=== PATIENT | male | born 1985 | race Caucasian/White ===

== ENCOUNTER 2017-11-15 03:48 | Inpatient (IN) | payer MEDICAID, OTHER ==
[~2017-11-15] VITALS: Ht 177.8 cm; Wt 67.6 kg
[2017-11-15] VITALS (7 sets, daily range): BP systolic 96–158
[2017-11-15] MEDS ORDERED: NACL 0.9% 1,000 ML IV ONE ×2 (04:27→05:49)
[2017-11-15 04:53] LABS: BASOPHILS # (AUTO) 0.2 K/uL (0.0-0.2); BASOPHILS % (AUTO) 1.6 % (0.0-2.0); EOSINOPHILS # (AUTO) 0.5 K/uL (0.0-0.4); EOSINOPHILS % (AUTO) 5.5 % (0.0-4.0); HEMATOCRIT 39.1 % (36-54); HEMOGLOBIN 12.7 g/dL (14.0-18.0); LYMPHOCYTES # (AUTO) 1.7 K/uL (1.0-5.5); LYMPHOCYTES % (AUTO) 17.6 % (20.5-51.5); MEAN CORPUSCULAR HEMOGLOBIN 26 pg (27-31); MEAN CORPUSCULAR HGB CONC 33 % (32-36); MEAN CORPUSCULAR VOLUME 80 fL (79.0-98.0); MONOCYTES # (AUTO) 0.6 K/uL (0.0-1.0); MONOCYTES % (AUTO) 6.1 % (1.7-9.3); NEUTROPHILS # (AUTO) 6.7 K/uL (1.8-7.7); NEUTROPHILS % (AUTO) 69.2 % (40.0-70.0); PLATELET COUNT (AUTO) 463 K/uL (130-430); RED CELL DISTRIBUTION WIDTH 14.7 % (9.0-15.0); WHITE BLOOD COUNT (AUTO) 9.7 K/uL (4.8-10.8)
[2017-11-15 04:59] LABS: CALCIUM 8.7 mg/dL (8.4-11.0); CREATININE 0.74 mg/dL (0.55-1.30); POTASSIUM 3.9 mmol/L (3.5-5.1)
[2017-11-15 05:04] LABS: ALBUMIN 2.5 g/dL (3.4-4.8); TOTAL BILIRUBIN 0.3 mg/dL (0.0-1.0)
[2017-11-15 05:18] LABS: INR 1.1 (0.80-1.20); PROTHROMBIN TIME 11.2 SECS (9.5-12.5)
[2017-11-15] MEDS ORDERED: diclofenac 1% gel TP (05:18)
[2017-11-15] MEDS ORDERED: AMAN100C16 GT (05:18)
[2017-11-15] MEDS ORDERED: LOVI40 SQ (05:18)
[2017-11-15] MEDS ORDERED: METO5SOL GT (05:18)
[2017-11-15] MEDS ORDERED: LUBRIFRESH PM EACH EYE (05:18)
[2017-11-15] MEDS ORDERED: CHLO473M5 MM (05:18)
[2017-11-15] MEDS ORDERED: PANT40TA4 GT (05:18)
[2017-11-15] MEDS ORDERED: BACL10TA GT (05:18)
[2017-11-15] MEDS ORDERED: POTASSIUM CHLORIDE 20 MEQ in D5/0.45 NS 1,000 ML IV SCH (05:50)
[2017-11-15 08:28] LABS: BILIRUBIN,URINE NEGATIVE (NEGATIVE); BLOOD, URINE 3+ (NEGATIVE); CLARITY/URINE SL HAZY (CLEAR); COLOR,URINE AMBER (YELLOW); GLUCOSE,URINE NEGATIVE (NEGATIVE); KETONES,URINE NEGATIVE (NEGATIVE); LEUKOCYTE ESTERASE ,URINE NEGATIVE (NEGATIVE); NITRITE, URINE NEGATIVE (NEGATIVE); PH,URINE 6.5 (5.0-8.0); PROTEIN URINE TRACE (NEGATIVE); UROBILINOGEN,URINE 0.2 (0.2-1.0)
[2017-11-15 08:30] LABS: BACTERIA,URINE FEW /HPF (None Seen); WBC,URINE 0-3 /HPF (0-3)
[2017-11-15] MEDS: POTASSIUM CHLORIDE 20 MEQ in D5/0.45 NS 1,000 ML IV SCH (08:31)
[2017-11-15] MEDS ORDERED: LevALBUTEROL HCL 1.25 MG/0.5 ML *CONC.* VIAL.NEB (XOPENEX CONC.) INH SCH (10:00)
[2017-11-15] MEDS: LevALBUTEROL HCL 1.25 MG/0.5 ML *CONC.* VIAL.NEB (XOPENEX CONC.) INH SCH ×3 (10:00→19:17)
[2017-11-15] MEDS ORDERED: MILK OF MAGNESIA 30 ML UDC PO PRN ×2 (10:00→10:30)
[2017-11-15] MEDS ORDERED: LevALBUTEROL HCL 1.25 MG/0.5 ML *CONC.* VIAL.NEB (XOPENEX CONC.) INH PRN (10:00)
[2017-11-15] MEDS ORDERED: ENOXAPARIN SODIUM 40 MG/0.4 ML SYRINGE SQ ONE (10:30)
[2017-11-15] MEDS ORDERED: METOCLOPRAMIDE HCL 10 MG/10 ML UDC GT PRN (10:30)
[2017-11-15] MEDS ORDERED: AMANTADINE HCL 100 MG CAP GT ONE (10:30)
[2017-11-15] MEDS: PANTOPRAZOLE SODIUM 40 MG TAB GT SCH (11:24)
[2017-11-15] MEDS ORDERED: cefTRIAXone 1 GM in D5W 50 ML IV ONE (12:00)
[2017-11-15] MEDS: IPRATROPIUM BROM 0.5 MG/2.5 ML VIAL.NEB (ATROVENT) INH SCH ×2 (12:45→19:17)
[2017-11-15] MEDS: AMANTADINE HCL 100 MG CAP GT SCH (21:35)
[2017-11-15] MEDS: BACLOFEN 10 MG TABLET GT SCH (21:35)
[2017-11-15] MEDS: CHLORHEXIDINE GLUCONATE 15 ML/DOSE, 480 ML MM SCH (21:44)
[2017-11-16 00:30] VITALS: BP_SYST 106
[2017-11-16] MEDS: POTASSIUM CHLORIDE 20 MEQ in D5/0.45 NS 1,000 ML IV SCH ×2 (00:50→23:43)
[2017-11-16] MEDS: LevALBUTEROL HCL 1.25 MG/0.5 ML *CONC.* VIAL.NEB (XOPENEX CONC.) INH SCH ×4 (01:35→19:56)
[2017-11-16] MEDS: IPRATROPIUM BROM 0.5 MG/2.5 ML VIAL.NEB (ATROVENT) INH SCH ×4 (01:35→19:56)
[2017-11-16 08:00] VITALS: BP_SYST 93
[2017-11-16] MEDS ORDERED: cefTRIAXone 1 GM in D5W 50 ML IV SCH (09:00)
[2017-11-16] MEDS: AMANTADINE HCL 100 MG CAP GT SCH ×2 (09:30→20:39)
[2017-11-16] MEDS: PANTOPRAZOLE SODIUM 40 MG TAB GT SCH (09:30)
[2017-11-16] MEDS: ENOXAPARIN SODIUM 40 MG/0.4 ML SYRINGE SQ SCH (09:30)
[2017-11-16] MEDS: CHLORHEXIDINE GLUCONATE 15 ML/DOSE, 480 ML MM SCH ×2 (09:32→20:40)
[2017-11-16 12:24] VITALS: BP_SYST 127
[2017-11-16] MEDS: PIPERACILLIN/TAZO 3.375/DEX-IS 50 ML IV SCH ×2 (18:04→23:42)
[2017-11-16 18:31] VITALS: BP_SYST 105
[2017-11-16 20:00] VITALS: BP_SYST 104
[2017-11-16] MEDS: BACLOFEN 10 MG TABLET GT SCH (20:39)
[2017-11-17] VITALS (25 sets, daily range): BP systolic 100–184
[2017-11-17] MEDS: IPRATROPIUM BROM 0.5 MG/2.5 ML VIAL.NEB (ATROVENT) INH SCH ×4 (01:39→19:45)
[2017-11-17] MEDS: LevALBUTEROL HCL 1.25 MG/0.5 ML *CONC.* VIAL.NEB (XOPENEX CONC.) INH SCH ×4 (01:39→19:45)
[2017-11-17] MEDS: PIPERACILLIN/TAZO 3.375/DEX-IS 50 ML IV SCH ×3 (05:09→18:13)
[2017-11-17 06:54] LABS: BASOPHILS # (AUTO) 0.1 K/uL (0.0-0.2); BASOPHILS % (AUTO) 1.2 % (0.0-2.0); EOSINOPHILS # (AUTO) 0.6 K/uL (0.0-0.4); EOSINOPHILS % (AUTO) 6.5 % (0.0-4.0); HEMATOCRIT 38.3 % (36-54); HEMOGLOBIN 12.4 g/dL (14.0-18.0); LYMPHOCYTES # (AUTO) 1.4 K/uL (1.0-5.5); LYMPHOCYTES % (AUTO) 15.6 % (20.5-51.5); MEAN CORPUSCULAR HEMOGLOBIN 26 pg (27-31); MEAN CORPUSCULAR HGB CONC 33 % (32-36); MEAN CORPUSCULAR VOLUME 79 fL (79.0-98.0); MONOCYTES # (AUTO) 0.6 K/uL (0.0-1.0); NEUTROPHILS # (AUTO) 6.4 K/uL (1.8-7.7); NEUTROPHILS % (AUTO) 69.7 % (40.0-70.0); PLATELET COUNT (AUTO) 480 K/uL (130-430); RED BLOOD CELL COUNT(AUTO) 4.82 MIL/uL (4.2-6.2); RED CELL DISTRIBUTION WIDTH 14.4 % (9.0-15.0); WHITE BLOOD COUNT (AUTO) 9.1 K/uL (4.8-10.8)
[2017-11-17 07:40] LABS: CALCIUM 9.5 mg/dL (8.4-11.0); CREATININE 0.82 mg/dL (0.55-1.30); POTASSIUM 4.1 mmol/L (3.5-5.1)
[2017-11-17] MEDS: ENOXAPARIN SODIUM 40 MG/0.4 ML SYRINGE SQ SCH (09:41)
[2017-11-17] MEDS: AMANTADINE HCL 100 MG CAP GT SCH ×2 (09:41→20:29)
[2017-11-17] MEDS: CHLORHEXIDINE GLUCONATE 15 ML/DOSE, 480 ML MM SCH ×2 (09:41→20:30)
[2017-11-17] MEDS: PANTOPRAZOLE SODIUM 40 MG TAB GT SCH (09:57)
[2017-11-17] MEDS: LORazepam 2 MG/ML VIAL IVP PRN (11:42)
[2017-11-17] MEDS: BACLOFEN 10 MG TABLET GT SCH (20:29)
[2017-11-18] VITALS (33 sets, daily range): BP systolic 98–137
[2017-11-18] MEDS: IPRATROPIUM BROM 0.5 MG/2.5 ML VIAL.NEB (ATROVENT) INH SCH ×4 (00:10→20:04)
[2017-11-18] MEDS: LevALBUTEROL HCL 1.25 MG/0.5 ML *CONC.* VIAL.NEB (XOPENEX CONC.) INH SCH ×4 (00:10→20:04)
[2017-11-18] MEDS: PIPERACILLIN/TAZO 3.375/DEX-IS 50 ML IV SCH ×4 (00:20→18:04)
[2017-11-18] MEDS: LORazepam 2 MG/ML VIAL IVP PRN ×5 (01:39→21:12)
[2017-11-18] MEDS: POTASSIUM CHLORIDE 20 MEQ in D5/0.45 NS 1,000 ML IV SCH (04:15)
[2017-11-18] MEDS: AMANTADINE HCL 100 MG CAP GT SCH ×2 (08:03→21:11)
[2017-11-18] MEDS: ENOXAPARIN SODIUM 40 MG/0.4 ML SYRINGE SQ SCH (08:04)
[2017-11-18] MEDS: CHLORHEXIDINE GLUCONATE 15 ML/DOSE, 480 ML MM SCH ×2 (08:05→21:12)
[2017-11-18] MEDS: PANTOPRAZOLE SODIUM 40 MG TAB GT SCH (09:46)
[2017-11-18] MEDS ORDERED: MORPHINE 4 MG/ML INJ. SYRINGE IVP PRN (19:30)
[2017-11-18] MEDS: BACLOFEN 10 MG TABLET GT SCH (21:11)
[2017-11-19] VITALS (31 sets, daily range): BP systolic 99–144
[2017-11-19] MEDS: PIPERACILLIN/TAZO 3.375/DEX-IS 50 ML IV SCH ×4 (00:42→17:38)
[2017-11-19] MEDS: LevALBUTEROL HCL 1.25 MG/0.5 ML *CONC.* VIAL.NEB (XOPENEX CONC.) INH SCH ×4 (01:29→19:55)
[2017-11-19] MEDS: IPRATROPIUM BROM 0.5 MG/2.5 ML VIAL.NEB (ATROVENT) INH SCH ×4 (01:29→20:18)
[2017-11-19] MEDS: POTASSIUM CHLORIDE 20 MEQ in D5/0.45 NS 1,000 ML IV SCH (06:28)
[2017-11-19] MEDS: AMANTADINE HCL 100 MG CAP GT SCH ×2 (08:25→21:42)
[2017-11-19] MEDS: CHLORHEXIDINE GLUCONATE 15 ML/DOSE, 480 ML MM SCH ×2 (08:25→21:42)
[2017-11-19] MEDS: ENOXAPARIN SODIUM 40 MG/0.4 ML SYRINGE SQ SCH (08:25)
[2017-11-19] MEDS: LORazepam 2 MG/ML VIAL IVP PRN ×2 (08:28→21:52)
[2017-11-19] MEDS: PANTOPRAZOLE SODIUM 40 MG TAB GT SCH (09:11)
[2017-11-19] MEDS: BACLOFEN 10 MG TABLET GT SCH (21:42)
[2017-11-20] VITALS (33 sets, daily range): BP systolic 92–128
[2017-11-20] MEDS: PIPERACILLIN/TAZO 3.375/DEX-IS 50 ML IV SCH ×5 (00:23→23:39)
[2017-11-20] MEDS: LevALBUTEROL HCL 1.25 MG/0.5 ML *CONC.* VIAL.NEB (XOPENEX CONC.) INH SCH ×4 (01:06→19:51)
[2017-11-20] MEDS: IPRATROPIUM BROM 0.5 MG/2.5 ML VIAL.NEB (ATROVENT) INH SCH ×4 (01:07→19:52)
[2017-11-20] MEDS: POTASSIUM CHLORIDE 20 MEQ in D5/0.45 NS 1,000 ML IV SCH (05:18)
[2017-11-20] MEDS: ENOXAPARIN SODIUM 40 MG/0.4 ML SYRINGE SQ SCH (09:26)
[2017-11-20] MEDS: AMANTADINE HCL 100 MG CAP GT SCH ×2 (09:26→20:43)
[2017-11-20] MEDS: CHLORHEXIDINE GLUCONATE 15 ML/DOSE, 480 ML MM SCH ×2 (13:36→20:42)
[2017-11-20] MEDS: PANTOPRAZOLE SODIUM 40 MG TAB GT SCH (13:38)
[2017-11-20] MEDS: LORazepam 2 MG/ML VIAL IVP PRN (15:20)
[2017-11-20] MEDS: BACLOFEN 10 MG TABLET GT SCH (20:43)
[2017-11-21] VITALS (30 sets, daily range): BP systolic 89–150
[2017-11-21] MEDS: LevALBUTEROL HCL 1.25 MG/0.5 ML *CONC.* VIAL.NEB (XOPENEX CONC.) INH SCH ×4 (00:55→18:39)
[2017-11-21] MEDS: IPRATROPIUM BROM 0.5 MG/2.5 ML VIAL.NEB (ATROVENT) INH SCH ×4 (00:56→18:39)
[2017-11-21] MEDS: LORazepam 2 MG/ML VIAL IVP PRN (04:06)
[2017-11-21] MEDS: PIPERACILLIN/TAZO 3.375/DEX-IS 50 ML IV SCH ×3 (05:48→16:59)
[2017-11-21] MEDS: POTASSIUM CHLORIDE 20 MEQ in D5/0.45 NS 1,000 ML IV SCH (05:50)
[2017-11-21] MEDS: PANTOPRAZOLE SODIUM 40 MG TAB GT SCH (09:19)
[2017-11-21] MEDS: AMANTADINE HCL 100 MG CAP GT SCH ×2 (09:19→20:28)
[2017-11-21] MEDS: ENOXAPARIN SODIUM 40 MG/0.4 ML SYRINGE SQ SCH (09:20)
[2017-11-21] MEDS: CHLORHEXIDINE GLUCONATE 15 ML/DOSE, 480 ML MM SCH ×2 (09:21→21:02)
[2017-11-21] MEDS ORDERED: LEVOFLOXACIN 500 MG/D5W 100 ML IV SCH (18:00)
[2017-11-21] MEDS ORDERED: LEVO500T20 IVPB (18:12)
[2017-11-21] MEDS: BACLOFEN 10 MG TABLET GT SCH (20:28)
== END 2017-11-21 21:40 | DRG 720 ==
LOC: SED 03:48 → STU 05:50 → SIC 11-17 08:10
PROVIDERS: ADMIT Family Medicine; ATTEND Family Medicine
PROC: 5A1955Z Respiratory Ventilation, Greater than 96 Consecutive Hours (ICD-10-PCS; principal; 2017-11-16)
DX: A41.9 Sepsis, unspecified organism (principal); J96.21 Acute and chronic respiratory failure with hypoxia; Z99.11 Dependence on respirator [ventilator] status; J15.1 Pneumonia due to Pseudomonas; G93.1 Anoxic brain damage, not elsewhere classified; J14 Pneumonia due to Hemophilus influenzae; Z93.0 Tracheostomy status; G25.3 Myoclonus; R47.01 Aphasia; Y95 Nosocomial condition; T50.905A Adverse effect of unspecified drugs, medicaments and biological substances, initial encounter; Y92.89 Other specified places as the place of occurrence of the external cause; Z74.01 Bed confinement status; Z93.1 Gastrostomy status; Z79.899 Other long term (current) drug therapy; Z87.891 Personal history of nicotine dependence; Z79.01 Long term (current) use of anticoagulants
CPT/HCPCS: 36415; 36600; 70450-TC; 71045; 71250-TC; 80048; 80053; 81000-TC; 82803-TC; 83605; 84484; 85025; 85610-TC; 85730-TC; 87040-TC; 87070-TC; 87081; 87086; 87186-TC; 87205-TC; 93970; 94002; 94003; 94640; 94760; 96360; 96361; 99285; J0696; J1650; J1956; J2060; J2543; J3480; J7030; J7060; J7612